=== PATIENT | male | born 2000 | race Two or more races ===

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

== ENCOUNTER 2019-08-04 05:33 | Inpatient (IN) | payer OTHER ==
[~2019-08-04] VITALS: Ht 25.4 cm; Wt 5.0 kg
--- NOTE | 2019-08-04 05:56 | NUR ---
PTE REFIERE FELICITAOR DE ANETTE SE DIVYA S/V YS EREALIZA EKG EL CUAL SE PRESENTA A DR LANTIGUA
--- NOTE | 2019-08-04 06:25 | NUR ---
[place] ORIENTA A PACIENTE SOBRE TRATAMIENTO. TREVA MUESTRAS DE LABORATORIO ORDENADAS. CANALIZA CON AREA DE VENOPUNCION CORAL DE EDEMA O ENROJECIMIENTO. SE ADMINISTRAN MEDICAMENTOS ORDENADOS. SE MANTIENE EN OBSERVACION POR CAMBIOS.
--- NOTE | 2019-08-04 07:16 | NUR ---
SE RECIBE PTE EN KATYA CON BARANDAS ELEVADAS CON IVFS PATENTE, CORAL DE EDEMA Y ERITEMA, ACOMPANADO POR FAMILIAR. CONECTADO A MONITOR CARDIACO. REFIERE TENER UN POCO DE DOLOR EN AMADOR ESCALA DE 2 . ALERTA, ORIENTADO POR HOLDEN. SE MANTIENE EN OBSERVACION.
--- NOTE | 2019-08-04 08:39 | NUR ---
EVALUADO POR EL Y PENDIENTE A REALIZARLE ECHOCARDIOGRAMA. SE MANTIENE EN OBSERVACION.
--- NOTE | 2019-08-04 09:55 | NUR ---
SE LE REALIZA ECHOCARDIOGRAMA. SE MANTIENE EN OBSERVACION.
--- NOTE | 2019-08-04 11:44 | NUR ---
SE LE NOTIFICA AL RESULTADO DE TROPONIA 4.030 Y CRP 6.64. SE MANTIENE EN OBSERVACION.
--- NOTE | 2019-08-04 12:58 | NUR ---
SE LE NOTIFICA AL REAULTADO DE SED RATE , MEDICAMENTOS ADMINISTRADO ALPHONSO ORDENADO SE MANTIENE EN OBSERVACION Y PENDIENTE A CONSULTA CON .
[2019-08-07] MEDS ORDERED: PEPCID20 MG PO (13:38)
[2019-08-07] MEDS ORDERED: COLCHICINE0.6 MG PO (13:38)
[2019-08-07] MEDS ORDERED: ASA325 MG PO (13:38)
== END 2019-08-07 14:03 | disposition home or self-care (01) | DRG 391 ==
LOC: ER 05:33 → SEC-K 14:51 → MEDJ 14:51
PROVIDERS: ADMIT Internal Medicine
PROC: B246ZZZ Ultrasonography of Right and Left Heart (ICD-10-PCS; principal; 2019-08-04)
PROC: 4A12X4Z Monitoring of Cardiac Electrical Activity, External Approach (ICD-10-PCS; 2019-08-04)
DX: K52.89 Other specified noninfective gastroenteritis and colitis (principal); I50.21 Acute systolic (congestive) heart failure; I30.8 Other forms of acute pericarditis; R07.89 Other chest pain; E86.0 Dehydration; E87.8 Other disorders of electrolyte and fluid balance, not elsewhere classified; I11.0 Hypertensive heart disease with heart failure; I08.1 Rheumatic disorders of both mitral and tricuspid valves

== ENCOUNTER 2019-12-12 09:57 | Outpatient (CLI) | payer OTHER ==
[~2019-12-12 09:57] MED LIST changes: +ASA325 MG PO; +COLCHICINE0.6 MG PO; +PEPCID20 MG PO
== END 2019-12-12 10:03 | disposition home or self-care (01) ==
LOC: RAD 09:57
DX: R05 Cough (principal); K21.0 Gastro-esophageal reflux disease with esophagitis

== ENCOUNTER 2021-06-25 00:11 | Inpatient (IN) | payer OTHER ==
[~2021-06-25] VITALS: Ht 177.8 cm; Wt 63.5 kg
[2021-06-25] MEDS ORDERED: AMOX1TAB5 (01:11)
== END 2021-06-28 14:16 | disposition home or self-care (01) | DRG 195 ==
LOC: ER 00:11 → SURH 16:06
PROVIDERS: ADMIT Internal Medicine; ATTEND Internal Medicine
PROC: BW24ZZZ Computerized Tomography (CT Scan) of Chest and Abdomen (ICD-10-PCS; principal; 2021-06-25)
DX: J18.8 Other pneumonia, unspecified organism (principal); B34.9 Viral infection, unspecified; G93.3 Postviral and related fatigue syndromes